=== PATIENT | male | born 1990 | race Caucasian/White ===

== ENCOUNTER 2021-10-09 17:59 | Emergency (ER) | payer MEDICAID, SELFPAY ==
[2021-10-09 18:15] VITALS: BP 124/79; PULSE 91; RESP 20; TEMP 37.1; O2SAT 99
--- NOTE | 2021-10-09 18:22 | ED.DENTAL ---
HPI - Dental/Oral General Chief complaint: Dental/Oral Stated complaint: tooth pain Time Seen by Provider: 10/09/21 18:23 Source: patient Mode of arrival: ambulatory Limitations: no limitations History of Present Illness HPI Narrative: Johan is a 31-year-old male patient ambulated into the [facility] with tooth pain. Patient has a right upper tooth that is broken off. Patient states it was broke with a dentist last time when a pulled to different tooth. Patient states has been unable to get into a dentist that takes a medical card. Patient has not been taking any medication for pain. Patient states the swelling and increased pain started in the last couple of days. MD Complaint: tooth pain Related Data Allergies Allergy/AdvReac Type Severity Reaction Status Date / Time No Known Allergies Allergy Verified 10/09/21 18:23 Review of Systems Review of Systems: CONSTITUTIONAL: Denies body aches, fever, chills, or sweats. EYES: Denies visual changes, redness, or discharge. ENT: Denies rhinorrhea, congestion, sore throat, or otalgia.+ Toothache, right facial swelling CARDIOVASCULAR: Denies chest pain, palpitations, or edema. RESPIRATORY: Denies cough or dyspnea. GASTROINTESTINAL: Denies abdominal pain, nausea, vomiting, or diarrhea. GENITOURINARY: Denies dysuria or hematuria. SKIN: Denies rash, itching, or wounds. MUSCULOSKELETAL: Denies back pain, joint pain, or myalgia. NEUROLOGIC: Denies headache, numbness, tingling, or weakness. PSYCH: Denies depression or anxiety. All systems reviewed & are unremarkable except as noted in HPI and below PMFSH Comments At time of signature, I have reviewed and agree with nursing past medical, surgical, social and family history unless otherwise noted. Please see nursing chart for further information. There is no relevant family history pertinent to the presenting complaint Exam Narrative: GENERAL: Well-appearing, well-nourished, and in no acute distress. HEAD: Normocephalic, atraumatic. EYES: EOMI. No redness or drainage. Conjunctivae normal. ENT: Mucous membranes pink and moist. Nares clear. No rhinorrhea. Tooth #4 is fractured. Erythema and edema are noted. Right maxillary area is edematous. NECK: Normal AROM. Supple. No lymphadenopathy. CHEST: No respiratory distress. Clear to auscultation. HEART: Regular rate and rhythm. No murmur appreciated. Normal peripheral pulses. ABDOMEN: Soft, nontender, nondistended, normal active bowel sounds. MUSCULOSKELETAL: No bony tenderness. EXTREMITIES: Normal range of motion. No edema. SKIN: Warm, dry, no rash. Capillary refill normal. Normal skin turgor. NEURO: No focal deficits. Alert and oriented x3. Gait steady. PSYCH: Normal affect. No signs of depression or anxiety. Course Vital Signs Vital signs: Vital Signs Temperature 37.1 C 10/09/21 18:15 Pulse Rate 91 10/09/21 18:15 Respiratory Rate 20 10/09/21 18:15 Blood Pressure 124/79 10/09/21 18:15 Pulse Oximetry 99 10/09/21 18:15 Temperature 37.1 C 10/09/21 18:15 Pulse Rate 91 10/09/21 18:15 Respiratory Rate 20 10/09/21 18:15 Blood Pressure 124/79 10/09/21 18:15 Pulse Oximetry 99 10/09/21 18:15 Reviewed MDM - Dental/Oral MDM Narrative Medical decision making narrative: Patient has a dental abscess surrounding tooth #4. Patient will be treated with Augmentin and prescription ibuprofen. Patient will take Tylenol in between for pain control. Patient was given a list of local dentist. He will make calls tomorrow to get an appointment. Differential Diagnosis Differential diagnosis: Likely dental caries, dental abscess, fracture of tooth and aphthous ulcer Medical Records Attestation: I reviewed the patient's medical records. Lab Data Attestation: I reviewed the patient's lab results. Critical Care Time Critical Care Time Critical Care Time: No Discharge Plan Discharge Clinical Impression: Dental abscess Patient Disposition: Home,
== END 2021-10-09 18:35 | disposition home or self-care (01) ==
PROVIDERS: Emergency Provider Nurse Practitioner Family
DX: K04.7 Periapical abscess without sinus (principal)
CPT/HCPCS: 99213; G0463

== ENCOUNTER 2023-03-22 14:33 | Outpatient (CLI) | payer OTHER, SELFPAY ==
[2023-03-22 14:49] LABS: Basophils Percent Auto 0.6 % (0.2-1.2); Eosinophils Absolute Auto 0.1 K/mm3 (0-0.3); Eosinophils Percent Auto 0.9 % (0-4.4); Hematocrit 43.2 % (42.0-52.0); Hemoglobin 14.6 g/dL (14.0-18.0); Immature Granulocyte Absolute 0.04 K/mm3 (0.00-0.031); Immature Granulocyte Percent A 0.6 % (0-0.5); Lymphocytes Absolute Auto 1.47 K/mm3 (0.9-3.2); Lymphocytes Percent Auto 21.2 % (18.3-44.2); Mean Corpuscular HGB Conc 33.8 g/dl (32-36); Mean Corpuscular Hemoglobin 28.5 pg (26-34); Mean Corpuscular Volume 84.2 fl (80-100); Mean Platelet Volume 11.9 fl (7.4-10.4); Monocytes Absolute Auto 0.5 K/mm3 (0.1-0.6); Monocytes Percent Auto 6.6 % (2.6-8.5); Neutrophils Absolute Auto 4.9 K/mm3 (1.3-6.7); Neutrophils Percent Auto 70.1 % (45.5-73.1); Platelet Count Result 174 k/mm3 (150-375); Red Blood Count 5.13 M/mm3 (4.6-6.20); Red Cell Distribution Width 12.9 % (11.5-14.5); White Blood Count 6.9 K/mm3 (4.5-10.0)
[2023-03-22 16:42] LABS: Alanine Aminotransferase 72 U/L (6-50); Albumin Level 4.3 g/dL (3.5-5.1); Alkaline Phosphatase 81 U/L (38-126); Anion Gap 7 mmol/L (8-16); Aspartate Amino Transferase 39 U/L (17-59); Bilirubin,Total 0.5 mg/dL (0.2-1.3); Blood Urea Nitrogen 11 mg/dL (9-20); Calcium 8.7 mg/dL (8.4-10.2); Carbon Dioxide 28 mmol/L (22-30); Chloride 103 mmol/L (98-107); Estimated Glomerular Filt Rate > 60; Glucose 125 mg/dL (65-110); Potassium 4.4 mmol/L (3.4-5.0); Sodium 138 mmol/L (137-145)
[2023-03-22 16:46] LABS: Iron 68 ug/dL (49-181)
[2023-03-22 17:09] LABS: Percent Iron Saturation 22 % (20-50)
[2023-03-26 14:35] LABS: Reference Lab Test Result Negative
== END 2023-03-22 14:34 | disposition home or self-care (01) ==
LOC: ANHLAB 14:35
PROVIDERS: PCP Internal Medicine; Visit Provider Internal Medicine Hematology & Oncology
DX: D69.59 Other secondary thrombocytopenia (principal)
CPT/HCPCS: 36415; 80053; 82607; 82728; 82746; 83540; 83550; 85025; 86023

== ENCOUNTER 2023-03-29 15:07 | Outpatient (CLI) | payer OTHER, SELFPAY ==
--- NOTE | ~2023-03-29 | US_ITS ---
US abdomen complete EXAMINATION: US Abdomen Complete INDICATION: Secondary thrombocytopenia PROCEDURE: Realtime High Resolution abdomen ultrasound. COMPARISON: No prior studies for comparison FINDINGS: Gallbladder within normal limits. No gallstones, pericholecystic fluid, gallbladder wall t hickening or biliary dilatation. Common bile duct measures 4 mm. Liver echotexture is increased, consistent with fatty infiltration.. Pancreas within normal limits. Pancreatic tail is obscured by bowel gas. Spleen is unremarkeable. Renal echotexture is within norm al limits bilaterally without hydronephrosis, contour deforming mass or renal stone. Right kidney estelita sures 10.6 cm. Left kidney measures 11.9 cm. Visualized aspects of the aorta and IVC are within normal limits. Portal vein is patent. No sonograph ic Parker's sign indicated by the technologist. IMPRESSION: 1: Hepatic steatosis. Reviewed, dictated and finalized at location [] IMPRESSION: 1: Hepatic steatosis.
== END 2023-03-29 15:08 | disposition home or self-care (01) ==
LOC: ANHIMG 15:08
PROVIDERS: PCP Internal Medicine; Visit Provider Internal Medicine Hematology & Oncology
DX: D69.59 Other secondary thrombocytopenia (principal); K76.0 Fatty (change of) liver, not elsewhere classified
CPT/HCPCS: 76700

== ENCOUNTER 2023-05-03 14:42 | Outpatient (RCR) | payer OTHER, SELFPAY ==
--- NOTE | 2023-05-03 19:57 | P.PNONC_ITS ---
Progress Note: A/P (1) Thrombocytopenia Code(s): D69.6 - Thrombocytopenia, unspecified Status: Acute Assessment and plan: Patient with mild thrombocytopenia reported in 06/2022 labs. Repeat CBC done 03/22/23 shows normal WBC of 6.9K, hemoglobin of 14.6, platelets of 174K and norm al. Platelet antibody were not detected. Abdominal ultrasound done 03/29/23 showed hepatic steatosis but normal liver and spleen size. Thrombocytopenia was transient and resolved. No intervention needed. He does not need regular follow up with hematology. Discharge from clinic. - Time Spent With Patient Total time spent is greater than 50% in coordination of care (as documented) at patient's floor/unit and/or counseling patient: 25 - 35 minutes Subjective Interval history: Reason For Visit: Follow up of Thrombocytopenia HPI: Johan Arteaga is a 32 y/o male who has seen Dr. Howard for the first time on 03/22/23 for mild thrombocytopenia. Patient had labs done in 06/2022 when he was noted to have platelet count of 151K with mild elevated MPV. He denied any bleeding or bruising. Dr. Howard ordered abdominal ultrasound and further blood work. patient is here for follow up. Patient states that he feels fine without any hospitalizations or new medical conditions. He was laid off from work few weeks back and is now unemployed. Review of Systems - Review of Systems patient states that he feels well without any bleeding or bruising. No petechial rash. Denies f/c, night sweats or weight loss. Denies abdominal pain, n/v/d. Denies headache, dizziness, syncope or falls. Denies rash. Denies hematochezia or melena. no hematuria. No lymphadenopathy. Exam - Constitutional no acute distress - Routine HEENT Exam Head: Present: atraumatic, normal inspection Eye: Present: EOMI, normal appearance ENT: Present: mucous membranes moist - Routine Neck Exam Present: full ROM - Routine Respiratory Exam Present: CTAB - Routine Cardiovascular Exam Cardiovascular: Present: RRR, S1, S2 - Routine Abdominal Exam Present: normal bowel sounds - Routine Extremities Exam Present: normal capillary refill, normal inspection, pulses intact - Routine Back/Spine/Pelvis Exam Back/Spine: Present: full ROM - Routine Skin Exam Present: intact - Routine Neurological Exam Present: alert, oriented X3, CN II-XII intact
== END 2023-05-10 12:49 ==
LOC: AMCINF 14:42
PROVIDERS: PCP Internal Medicine; Visit Provider Internal Medicine
DX: D69.6 Thrombocytopenia, unspecified (principal); K76.0 Fatty (change of) liver, not elsewhere classified
CPT/HCPCS: 99199

== ENCOUNTER 2023-12-10 16:55 | Outpatient (CLI) | payer OTHER, SELFPAY ==
--- NOTE | ~2023-12-10 | CT_ITS ---
EXAMINATION: CT sinus wo con DATE: 12/10/2023 17:06 INDICATION: Chronic sinusitis. TECHNIQUE: Computed tomography (CT) of the paranasal sinuses was performed without intravenous contra st. Iterative reconstruction technique was employed. The dose-length product was 341.58 mGy-cm. COMPARISON: None FINDINGS: There is mild mucosal thickening in left frontal recess. There is mild mucosal thickening i n the bilateral ethmoid sinuses and right maxillary sinus. Left maxillary sinus and sphenoid sinus ar e clear. There is rightward deviation of the nasal septum. There are changes of right uncinectomy. 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 The ostiomeatal units are patent. Dental disea se is noted. IMPRESSION: 1. Mild mucosal thickening in the paranasal sinuses. 2. Rightward deviation of the nasal septum. Reviewed, dictated and finalized at location A. [facility]
== END 2023-12-10 16:56 | disposition home or self-care (01) ==
LOC: ANHIMG 16:56
PROVIDERS: PCP Internal Medicine; Visit Provider Otolaryngology
DX: J32.9 Chronic sinusitis, unspecified (principal); J34.2 Deviated nasal septum
CPT/HCPCS: 70486